=== PATIENT | male | born 1995 | race Caucasian/White ===

== ENCOUNTER 2022-06-07 12:02 | Emergency (ER) | payer OTHER ==
[~2022-06-07] VITALS: Wt 72.7 kg
[2022-06-07] MEDS ORDERED: CEPHALEXIN500 M1 PO (13:57)
[2022-06-07 14:09] VITALS: BP 124/65
== END 2022-06-07 14:28 | disposition home or self-care (01) ==
LOC: ED 12:02
DX: S21.122A Laceration with foreign body of left front wall of thorax without penetration into thoracic cavity, initial encounter (principal); S31.139A Puncture wound of abdominal wall without foreign body, unspecified quadrant without penetration into peritoneal cavity, initial encounter; Z28.310 Unvaccinated for COVID-19; Z23 Encounter for immunization; W34.09XA Accidental discharge from other specified firearms, initial encounter
CPT/HCPCS: 90715